=== PATIENT | male | born 1970 | race Caucasian/White ===

== ENCOUNTER → 2022-04-29 | Outpatient (CLI) | payer OTHER, SELFPAY ==
[2022-04-29 11:13] LABS: ALB/GLOB Ratio 1.3 RATIO (0.9-2.4); AST(SGOT) 18 U/L (15-37); Alanine Aminotransfer ALT/SGPT 36 U/L (16-61); Albumin, Serum 4.3 g/dL (3.2-5.0); Alkaline Phosphatase 109 U/L (45-117); Anion Gap 6 (5-15); BUN 11 mg/dL (7-18); BUN/Creat Ratio 11.5 RATIO (10-20); Calcium,Total 9.3 mg/dL (8.5-10.1); Chloride 104 mmol/L (98-107); Cholesterol 184 mg/dL (200); Creatinine, Serum 0.95 mg/dL (0.70-1.30); EST Glomerular Filtration Rate 88 mL/min (>60); Est Glom Filt Rate - Afr Amer 107 mL/min (>60); Globulin 3.3 g/dL (2.2-4.2); Glucose 99 mg/dL (74-106); High Density Lipoprotein 29 mg/dL; PSA,Total - Annual Screen 1.11 ng/mL (0.00-4.00); Potassium 4.4 mmol/L (3.5-5.1); Protein, Total 7.6 g/dL (6.4-8.2); Sodium Level 137 mmol/L (136-145); T4 Free Direct 1.02 ng/dL (0.76-1.46); Thyroid Stim Hormone (TSH) 0.39 uIU/mL (0.358-3.74); Triglycerides 75 mg/dL; Very Low Density Lipoprotein 15 mg/dL (5-40)
== END | disposition home or self-care (01) ==
LOC: MFPLAB 09:43
PROVIDERS: PCP Family Medicine; Referring Provider Family Medicine; Visit Provider Family Medicine
DX: Z12.5 Encounter for screening for malignant neoplasm of prostate (principal); E78.5 Hyperlipidemia, unspecified; E07.9 Disorder of thyroid, unspecified
CPT/HCPCS: 36415; 80053; 80061; 84153; 84439; 84443; G0103

== ENCOUNTER → 2023-08-03 | Outpatient (CLI) | payer BC, SELFPAY ==
[2023-08-03 13:59] LABS: ALB/GLOB Ratio 1.2 RATIO (0.9-2.4); AST(SGOT) 22 U/L (15-37); Alanine Aminotransfer ALT/SGPT 44 U/L (16-61); Albumin, Serum 4.1 g/dL (3.2-5.0); Alkaline Phosphatase 105 U/L (45-117); Anion Gap 6 (5-15); BUN 9 mg/dL (7-18); BUN/Creat Ratio 10.1 RATIO (10-20); Calcium,Total 9.2 mg/dL (8.5-10.1); Chloride 104 mmol/L (98-107); Cholesterol 176 mg/dL (200); Creatinine, Serum 0.89 mg/dL (0.70-1.30); EST Glomerular Filtration Rate 95 mL/min (>60); Est Glom Filt Rate - Afr Amer 115 mL/min (>60); Globulin 3.5 g/dL (2.2-4.2); Glucose 90 mg/dL (74-106); High Density Lipoprotein 31 mg/dL; PSA,Total - Annual Screen 1.08 ng/mL (0.00-4.00); Potassium 4.3 mmol/L (3.5-5.1); Protein, Total 7.6 g/dL (6.4-8.2); Sodium Level 138 mmol/L (136-145); Triglycerides 102 mg/dL; Very Low Density Lipoprotein 20 mg/dL (5-40)
== END | disposition home or self-care (01) ==
LOC: MTLAB 09:32
PROVIDERS: PCP Family Medicine; Referring Provider Family Medicine; Visit Provider Family Medicine
DX: Z12.5 Encounter for screening for malignant neoplasm of prostate (principal); I10 Essential (primary) hypertension
CPT/HCPCS: 36415; 80053; 80061; 84153; G0103

== ENCOUNTER → 2023-10-28 | Outpatient (CLI) | payer BC, SELFPAY ==
--- NOTE | 2023-10-28 17:26 | RAD_ITS ---
INDICATION: injury 6 weeks ago. 2nd finger dislocation, 3-4 laceration, pip EXAMINATION/TECHNIQUE: X-RAY - RIGHT XR Hand Min 3 Views COMPARISON: None. FINDINGS: 3 views of the right hand. Small avulsion fractures off the volar base of the middle finger middle phalanx and ring finger middle phalanx consistent with volar plate injuries. Associated soft tissue swelling at these PIP joints. Likely subtle avulsion of the dorsal base of the middle finger middle phalanx. Small soft tissue calcification at the volar aspect of the index finger PIP joint as well, which may represent additional avulsion fracture. No other definite acute osseous abnormality. No definite foreign bodies as above foci appear more consistent with avulsion fractures. RAD/Hand Min 3 Views IMPRESSION: Right middle finger and right ring finger fractures. Possible additional index finger avulsion fracture as well. Electronically Signed: Alex Velazquez MD at 21:23 EDT ,
== END | disposition home or self-care (01) ==
LOC: MTRAD 17:23
PROVIDERS: PCP Family Medicine; Referring Provider Family Medicine; Visit Provider Family Medicine
DX: S62.622A Displaced fracture of middle phalanx of right middle finger, initial encounter for closed fracture (principal); S62.624A Displaced fracture of middle phalanx of right ring finger, initial encounter for closed fracture; X58.XXXA Exposure to other specified factors, initial encounter
CPT/HCPCS: 73130